=== PATIENT | female | born 1980 | race Caucasian/White ===

== ENCOUNTER 2018-03-27 04:29 | Inpatient (IN) | payer OTHER ==
[~2018-03-27] VITALS: Ht 172.7 cm; Wt 142.4 kg
[~2018-03-27 04:29] MED LIST: MOTRIN 800MG T800 MG PO; PERCOCET 325 MG1 TA2 PO
[2018-03-27 05:37] LABS: ABSOLUTE BASOPHIL COUNT 0 /CUMM (0.0-0.2); ABSOLUTE EOSINOPHIL COUNT 0.1 /CUMM (0.0-0.7); ABSOLUTE GRANULOCYTE CT 7.2 /CUMM (1.4-6.5); ABSOLUTE LYMPH COUNT 2.6 /CUMM (1.2-3.4); ABSOLUTE MONOCYTE COUNT 0.6 /CUMM (0.10-0.60); BASOPHIL % 0.3 % (0.0-2.0); EOSINOPHIL % 0.6 % (0-5); GRANULOCYTE % 68.8 % (42.2-75.2); HEMATOCRIT 36.6 % (37-47); MEAN CORPUSCULAR HGB 26.5 PG (27.0-31.0); MEAN CORPUSCULAR HGB CONC 32.9 G/DL (33.0-37.0); MEAN CORPUSCULAR VOLUME 80.6 FL (81.0-99.0); MEAN PLATELET VOLUME 8.7 FL (7.4-10.4); PLATELET COUNT 216 /CUMM (130-400); RBC DISTRIBUTION WIDTH 16.3 % (11.5-14.5); RED BLOOD CELL CT 4.54 /CUMM (4.20-5.40); WHITE BLOOD CELL COUNT 10.5 /CUMM (4.8-10.8)
[2018-03-27] MEDS ORDERED: VITAFOL ULTRA1 EACH (06:48)
--- NOTE | 2018-03-27 07:12 | History & Physical ---
General Information and HPI MD Statement: I have seen and personally examined KARIE GARRIDO and documented this H&P. The patient is a 38 year old female at 40 weeks and 1 days gestation who presented with a chief complaint of SROM at appx 315 am . Source of Information: patient, old records Exam Limitations: no limitations History of Present Illness: Patient is a 38 year old female Para 2 with history of csection x 2 at 40w1d with PROM. First noted to be clear and now light meconium. Patient stated that she wanted her baby to be on time and not early hence waiting for labor. 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 Past Pregnancies Past Pregnancies: 1 Date of Delivery: 07/2011 Gestational Age: 41 Weight: [id number] Type of Delivery: Anesthesia: epidural Place of Delivery: [facility] Complications: none Past Pregnancies: 2 Date of Delivery: 10/2014 Gestational Age: 39 Weight: [id number] Type of Delivery: Place of Delivery: [facility] Complications: none Medical History Blood Transfusion Hx: No Neurological: NONE EENT: NONE Cardiovascular: NONE Respiratory: NONE Gastrointestinal: NONE Hepatic: NONE Renal: NONE Musculoskeletal: NONE Psychiatric: NONE Endocrine: NONE Blood Disorders: NONE Cancer(s): NONE FASHION BUYING INTERNSHIP/Reproductive: HPV Other Medical Hx: na Surgical History Pertinent Surgical History: appendectomy, Past Family/Social History Psychosocial History Where do you live? Home Who Do You Live With? spouse, child Primary Language: Romanian Smoking Status: Former Smoker ETOH Use: denies use Illicit Drug Use: denies illicit drug use Living Will? unknown Power of Supervisor Riveting/HCP? unknown Other Social History: na Employment History Employment Unemployed Review of Systems Review of Systems Constitutional: Denies: no symptoms. EENTM: Denies: no symptoms, throat swelling, mouth pain, tooth pain. Cardiovascular: Denies: no symptoms. Respiratory: Denies: no symptoms. GI: Denies: no symptoms. Genitourinary: Denies: no symptoms. Musculoskeletal: Denies: no symptoms. Skin: Denies: no symptoms. Neurological/Psychological: Denies: no symptoms. Hematologic/Endocrine: Denies: no symptoms. Immunologic/Allergic: Denies: no symptoms. All Other Systems: Reviewed and Negative Date of LMP: 06/19/17 Post Menopausal: No Date of Last Pap Smear: 07/20/17 Exam & Diagnostic Data Last 24 Hrs of Vital Signs/I&O Intake & Output 03/27 0800 03/27 0000 03/26 1600 Intake Total Output Total Balance Patient 142.428 kg Weight Obstetric Exam Wgt Gained During : No record for same Pelvimetry: NA Dilation (cm): 0 Effacement (%): 0 Station: -2 Membranes: SROM Fluid: light meconium, Initial noted as clear. now light meconium Fundal Height (cm): 40 Multiple Gestation? No Contractions: Initially irregular now q2-4 #1 - FHR Baseline: 140 Category: 1 Estimated Weight: 3800 Presentation: Cephalic Patient for Induction? No Physical Exam General Appearance Alert, Oriented X3, Cooperative, Mild Distress Skin No Rashes HEENT Atraumatic Neck Supple Cardiovascular Regular Rate Lungs Clear to Auscultation, Normal Air Movement Abdomen Normal Bowel Sounds, Soft, No Tenderness Neurological Normal Gait, Normal Speech, Strength at 5/5 X4 Ext, Normal Tone, Sensation Intact, Cranial Nerves 3-12 NL Extremities No Edema Vascular Normal Pulses Breasts Breast appear nl Reproductive (FEMALE) Normal female genitalia Pelvic (FEMALE) Appearance Normal Labs Blood Type & Rh: O negative Antibody Screen: negaitve Hct/Hgb & Platelets #1: 39/207 Hct/Hgb & Platelets #2: 36/216 Rubella: immune VDRL #1: negative VDRL #2: negative HbsAg: negative HIV #1: negative HIV #2 negative 1 Hr PG: normal Group B Strep: negative Initial Ultrasound: none documented Anatomy Ultrasound: none avail for review Ultrasound for EFW: none for review Genetic Testing: Frist trimester screen negative Last 24 Hrs of Labs/Richardson: Laboratory Tests 03/27/18 0520: CBC w Diff NO MAN DIFF REQ, RBC 4.54, MCV 80.6 L, MCH 26.5 L, MCHC 32.9 L, RDW 16.3 H, MPV 8.7, Gran % 68.8, Lymphocytes % 24.6, Monocytes % 5.7, Eosinophils % 0.6, Basophils % 0.3, Absolute Granulocytes 7.2 H, Absolute Lymphocytes 2.6, Absolute Monocytes 0.6, Absolute Eosinophils 0.1, Absolute Basophils 0, Urinalysis MOD H, Urine Color YEL, Urine Clarity CLDY H, Urine pH 6.0, Ur Specific [place] 1.015, Urine Protein NEG, Urine Ketones NEG, Urine Nitrite NEG, Urine Bilirubin NEG, Urine Urobilinogen 0.2, Ur Leukocyte Esterase TRACE H, Ur Microscopic SEDIMENT EXAMINED, Urine RBC 25-50 H, Urine WBC 1-3 H , Ur Epithelial Cells FEW, Urine Bacteria MOD H, Urine Mucus FEW, Urine Hemoglobin LARGE H, Urine Glucose NEG 03/27/18 0450: Membrane Rupture POSITIVE Microbiology 03/27 0600 URINE ROUT: Urine Culture - COLB Assessment/Plan Assessment/Plan: Patient is a 38 year old female with complicated by AMA and morbid obesity with PROM and meconium stained fluid for repeat Csection and BTL. 1) Risks to surgery outlined again and discussed BTL which she consented for. As higher order csection it was counseled to her that it may time additional time to get to due to adhesions. No previa so accreta risk still at the 1% eliezer. Antibiotic prophylaxis with Clindamycin and Gentamicin VTE prophylaxis with alps and then lovenox daily Pain mgmt discussed. O negative and will have two units in the OR. Contacted peds and anesthesia and Dr Levine at 0700. All questions answered. As Ranked By This Provider Problem List: 1. Premature rupture of membranes 2. History of 3. Obesity affecting Core Measures Venous Thromboembolism VTE Risk Factors / No Mechanical VTE Prophylaxis d/t N/A MechProphylax Ordered No VTE Pharm Prophylaxis d/t Other (postop will have lovenox) Attending MD Review Statement Attending Statement Attending MD Statement: examined this patient, discussed w/nursing Attending Assessment/Plan: as outlined
--- NOTE | 2018-03-27 10:02 | Operative Report ---
Operative/Inv Procedure Report Surgery Date: 03/27/18 Name of Procedure: LTCS #3 and BTL Pre-Operative Diagnosis: PROM Previous csection x 2 Voluntary sterilization Post-Operative Diagnosis: same Estimated Blood Loss: 800 cc Surgeon/Senior Ui Ux Designer: Fadi David MD, Michael MD Anesthesia: Spinal Monitors: Per Anesthesiology IV Fluids: 1400 cc Implants: None Urine Output: 400 cc Drains: none Specimens: Placenta Bilateral tubal segments Microbiology: NA Complications: None Condition: Mother to RR in stable condition to RR in stable condition Operative Indication: 38 year old female with history of Csection x 2 with PROM and early labor. Consented for procedure and BTL by Dr Smith and reviewed same with patient. Risks of pain, bleeding, infection, wound complications, vte, ileus, damage to bladder or bowel. All questions answered. Operative/Procedure Note Note: Patient taken to OR and spinal was placed. During this time Clindamycin and Gentamicin for surgical prophylaxis were given. Placed in supine position with leftward tilt. Corbin placed and vagina prepped with povidone given her membranes were ruptured to decrease SSI risk. Prepped and draped in usual sterile fashion. Repeat phannensteil incision made and carried through to fascia using bovie. Superior and inferior fascial edges were bluntly and sharply dissected. Rectus muscle was adhesed and dissected caudally using bovie. Peritoneum entered and dissected superiorly and inferiorly with good visualization of the bladder. No intraabdominal adhesions appreciated and intact uterus noted. Bladder flap created and bladder blade introduced. Hysterotomy incision made and extended in manual fashion. delivered in ROT rotaiton and no nuchal cord. delivered with apgars of 9 and 9 and given to Peds. Placenta removed intact and 3 vessell. Uterus unable to be removed from the incision so it was repaired in abdomen. Two layer closure done with 0vicryl after clearing uterus of clots and debris. Once hysterotomy closed attention was turned to Right adnexae. A Kroener type tubal ligation was done on the right. Right tube grasped with Jenni and ligated with two ties of 3-0 plain. Portion of tube sent to pathology and pedicle was hemostatic. Attention turned to left tube where same procedure performed and area hemostatic as well. Abdomen irrigated. Maura 3 grams applied to hysterotomy incision for hemostatic barrier. Muscle edges reapproximated using 2-0 vicryl and fascia then closed with 0 maxon. This given her obesity and now 3rd fascial incision. Subcutaneous tissue closed with 3-0 plain and skin with kacie. Instrument and lap count correct x 2. Tolerated well. bandage applied. Expressed of clots from uterus. Transferred to in stable condition
--- NOTE | 2018-03-27 10:05 | Labor & Delivery Summary ---
Delivery Summary Section: Section: repeat # (#3) Indication: Previous x2 and PROM and in early labor Voluntary sterilization Anesthesia: Spinal Placenta: Placenta: normal, 3 vessel Anesthesia: Spinal Baby's Weight: 4.196 kg Apgars - 1 Min: 9 Apgars - 5 Min: 9 Additional Comments: Normal uterus tubes and ovaries noted at time of csection No adhesions appreciated Male
--- NOTE | 2018-03-28 08:51 | PN- Post Delivery/GYN ---
Subjective Subjective: Doing very well. Pain is 4/10 and per patient okay Positive flatus Seen OOB in chair bonding with baby Ate breakfast without issue Review of Systems Constitutional: Denies: no symptoms. EENTM: Denies: no symptoms. Cardiovascular: Denies: no symptoms. Respiratory: Denies: no symptoms. Gastrointestinal: Denies: bloating, distention. Genitourinary: Denies: dysuria. Musculoskeletal: Denies: back pain. Skin: Denies: no symptoms. Neurological/Psychological: Denies: no symptoms. Hematologic/Endocrine: Denies: no symptoms. Immunologic/Allergic: Denies: no symptoms. Objective Last 24 Hrs of Vital Signs/I&O AVSS Physical Exam General Appearance Alert, Oriented X3, Cooperative, No Acute Distress Skin No Rashes Cardiovascular Regular Rate, No Murmurs Lungs Clear to Auscultation, Normal Air Movement Abdomen Normal Bowel Sounds, Soft Neurological Normal Speech, Strength at 5/5 X4 Ext, Sensation Intact Extremities No Edema, No venkat's sign Vascular Normal Pulses Breasts Breast appear nl Current Medications: Current Medications Sig/Callum Start time Last Medication Dose Route Stop Time Status Admin Acetaminophen 650 MG Q4P PRN 03/27 2130 AC PO Acetaminophen 1,000 MG Q6H 03/27 1500 DC 03/27 N/A 1 UNIT IV 03/28 0314 0800 Ascorbic Acid 500 MG BID 03/27 1008 AC PO Butorphanol Tartrate 1 MG Q4P PRN 03/27 07 DC 03/27 IV 0701 Cholecalciferol 1,000 IU DAILY 03/27 1008 AC PO Diphenhydramine HCl 25 MG Q6P PRN 03/27 1045 AC IV Enoxaparin Sodium 40 MG DAILY@03/28 2000 AC SC Enoxaparin Sodium 40 MG DAILY 03/28 09 DC 03/27 SC 2020 Ibuprofen 800 MG Q6P PRN 03/27 2130 AC 03/28 PO 0740 Ketorolac 30 MG Q6P PRN 03/27 1200 DC 03/27 Tromethamine IV 03/28 0600 1807 Lactated Ringer's 1,000 ML Q8H 03/27 0600 DC 03/27 IV 0530 Lactobacillus 1 CAP BID 03/27 1014 AC Acidophilus PO Lidocaine 1 PAT DAILY 03/27 1012 AC EXT Metoclopramide HCl 10 MG Q6P PRN 03/27 1045 AC 03/27 IV 1051 Naloxone HCl 0.2 MG .Q5 MIN PRN 03/27 1045 AC IV Ondansetron HCl 4 MG Q6P PRN 03/27 1015 AC IV Oxytocin 20 UNITS Q8H 03/27 1015 DC 03/27 Lactated Ringer's 1,000 ML IV 03/27 1814 0930 Last 24 Hrs of Labs/Richardson: Laboratory Tests 03/28/1835: Kleihauer Cells Pending 03/28/1835: CBC w Diff Pending, WBC Pending, RBC Pending, Hgb Pending, Hct Pending, MCV Pending, MCH Pending, MCHC Pending, RDW Pending, Plt Count Pending, MPV Pending Assessment/Plan Assessment/Plan Pod#1 s/p repeat LTCS x3 and BTL. Doing well and afebrile with vitals stable 1) Pain mgmt strategies reviewed 2) Pending blood type on to determine rhogam status 3) Heme. CBC pending but no orthostatic findigns 4) VTE prophylaxis. Tolerating lovenox daily 5) GI. Tolerating diet. Awaiting bowel movement. Flatus noted 6) Discussed depression and blues. 7) Immunization. Discussed the Tdap and she will get prior to being discharged. 8) Breast feeding without issue Problem List: 1. History of 2. Obesity affecting Attending MD Review Statement Attending Statement Attending MD Statement: examined this patient, discussed with nursing Attending Assessment/Plan: As outlined
[2018-03-28 09:19] LABS: ABSOLUTE BASOPHIL COUNT 0 /CUMM (0.0-0.2); ABSOLUTE EOSINOPHIL COUNT 0 /CUMM (0.0-0.7); ABSOLUTE GRANULOCYTE CT 7.6 /CUMM (1.4-6.5); ABSOLUTE MONOCYTE COUNT 0.7 /CUMM (0.10-0.60); BASOPHIL % 0.3 % (0.0-2.0); EOSINOPHIL % 0.3 % (0-5); GRANULOCYTE % 67.3 % (42.2-75.2); HEMATOCRIT 31.7 % (37-47); MEAN CORPUSCULAR HGB CONC 33.4 G/DL (33.0-37.0); MEAN CORPUSCULAR VOLUME 80.8 FL (81.0-99.0); PLATELET COUNT 197 /CUMM (130-400); RBC DISTRIBUTION WIDTH 16.4 % (11.5-14.5); RED BLOOD CELL CT 3.92 /CUMM (4.20-5.40); WHITE BLOOD CELL COUNT 11.3 /CUMM (4.8-10.8)
[2018-03-28 12:17] VITALS: BP 108/58
[2018-03-29] MEDS ORDERED: IBUPROFEN800 M1 PO (08:04)
== END 2018-03-29 11:30 | DRG 765 ==
LOC: CBCO 04:29 → GNO 05:06
PROVIDERS: Obstetrics & Gynecology
PROC: 0UB70ZZ Excision of Bilateral Fallopian Tubes, Open Approach (ICD-10-PCS; principal; 2018-03-27)
PROC: 10D00Z1 Extraction of Products of Conception, Low, Open Approach (ICD-10-PCS; principal; 2018-03-27)
DX: O34.211 Maternal care for low transverse scar from previous cesarean delivery (principal); Z68.42 Body mass index [BMI] 45.0-49.9, adult; N85.8 Other specified noninflammatory disorders of uterus; Z3A.40 40 weeks gestation of pregnancy; Z37.0 Single live birth; Z30.2 Encounter for sterilization; O42.92 Full-term premature rupture of membranes, unspecified as to length of time between rupture and onset of labor; O99.214 Obesity complicating childbirth; E66.01 Morbid (severe) obesity due to excess calories; Z87.891 Personal history of nicotine dependence; Z88.1 Allergy status to other antibiotic agents; Z88.8 Allergy status to other drugs, medicaments and biological substances; Z90.49 Acquired absence of other specified parts of digestive tract
CPT/HCPCS: GNOS; 36415; 81001; 84112; 86920; 87086; J1580; J1650; J1885; J2765; J2790; J7120